=== PATIENT | female | born 1975 | race Caucasian/White ===

== ENCOUNTER 2018-05-10 02:14 | Emergency (ER) | payer SELFPAY ==
--- NOTE | 2018-05-10 02:23 | EDM.PDOC ---
ED HPI GENERAL MEDICAL PROBLEM - General Chief Complaint: General Stated Complaint: MEDICAL CLEARANCE Time Seen by Provider: 05/10/18 02:20 - History of Present Illness INITIAL COMMENTS - FREE TEXT/NARRATIVE: HISTORY AND PHYSICAL: History of present illness: Patient's 42-year-old white female presents in custody of law enforcement for medical clearance patient has no complaints Review of systems: As per history of present illness and below otherwise all systems reviewed and negative. Past medical history: As per history of present illness and as reviewed below otherwise noncontributory. Surgical history: As per history of present illness and as reviewed below otherwise noncontributory. Social history: No reported history of drug or alcohol abuse. Family history: As per history of present illness and as reviewed below otherwise noncontributory. Physical exam: HEENT: Atraumatic, normocephalic, pupils reactive, negative for conjunctival pallor or scleral icterus, mucous membranes moist, throat clear, neck supple, nontender, trachea midline. Lungs: Clear to auscultation, breath sounds equal bilaterally, chest nontender. Heart: S1S2, regular, negative for clicks, rubs, or JVD. Abdomen: Soft, nondistended, nontender. Negative for masses or hepatosplenomegaly. Negative for costovertebral tenderness. Pelvis: Stable nontender. Genitourinary: Deferred. Rectal: Deferred. Extremities: Atraumatic, negative for cords or calf pain. Neurovascular unremarkable. Neuro: Awake, alert, oriented. Cranial nerves II through XII unremarkable. Cerebellum unremarkable. Motor and sensory unremarkable throughout. Exam nonfocal. Diagnostics: None Therapeutics: None Impression: Medically clear for incarceration Definitive disposition and diagnosis as appropriate pending reevaluation and review of above. - Related Data Allergies Allergy/AdvReac Type Severity Reaction Status Date / Time No Known Allergies Allergy Verified 05/10/18 02:15 Home Meds: Home Meds . [No Known Home Meds] 05/10/18 [History] ED ROS GENERAL - Review of Systems Review Of Systems: ROS reveals no pertinent complaints other than HPI. ED EXAM, GENERAL - Physical Exam Exam: See Below (See dictation) Departure - Departure Time of Disposition: 02:23 Disposition: Home, Self-Care 01 Condition: Good Clinical Impression: Medical clearance for incarceration - Discharge Information Referrals: PCP,None [Primary Care Provider] - Additional Instructions: The following information is given to patients seen in the emergency department who are being discharged to home. This information is to outline your options for follow-up care. We provide all patients seen in our emergency department with a follow-up referral. The need for follow-up, as well as the timing and circumstances, are variable depending upon the specifics of your emergency department visit. If you don't have a primary care physician on staff, we will provide you with a referral. We always advise you to contact your personal physician following an emergency department visit to inform them of the circumstance of the visit and for follow-up with them and/or the need for any referrals to a consulting specialist. The emergency department will also refer you to a specialist when appropriate. This referral assures that you have the opportunity for followup care with a specialist. All of these measure are taken in an effort to provide you with optimal care, which includes your followup. Under all circumstances we always encourage you to contact your private physician who remains a resource for coordinating your care. When calling for followup care, please make the office aware that this follow-up is from your recent emergency room visit. If for any reason you are refused follow-up, please contact the [facility] emergency department at and asked to speak to the emergency department charge nurse. [facility] [address] [place] [id number] Follow-up primary medical doctor and/or clinic above for reevaluation of blood pressure return as needed as discussed
== END 2018-05-10 02:40 ==
LOC: MW.ED 02:14
DX: Z02.89 Encounter for other administrative examinations (principal)
CPT/HCPCS: 99282; 99283

== ENCOUNTER 2018-06-30 02:56 | Emergency (ER) | payer SELFPAY ==
[2018-06-30] MEDS ORDERED: Sodium Chloride 0.9% 10 ML Syringe FLUSH PRN (03:22)
[2018-06-30] MEDS ORDERED: Sodium Chloride 0.9% 2.5 ML Syringe FLUSH PRN (03:22)
--- NOTE | 2018-06-30 03:22 | EDM.PDOC ---
ED HPI GENERAL MEDICAL PROBLEM - General Chief Complaint: General Stated Complaint: IN AND OUT OF CONSCIOUSNESS Time Seen by Provider: 06/30/18 03:19 - History of Present Illness INITIAL COMMENTS - FREE TEXT/NARRATIVE: HISTORY AND PHYSICAL: History of present illness: Past 42-year-old white female presents here after drinking tonight with friends with multiple complaints. She remains anxious and unclear of her chief complaint. Review of systems: As per history of present illness and below otherwise all systems reviewed and negative. Past medical history: As per history of present illness and as reviewed below otherwise noncontributory. Surgical history: As per history of present illness and as reviewed below otherwise noncontributory. Social history: No reported history of drug or alcohol abuse. Family history: As per history of present illness and as reviewed below otherwise noncontributory. Physical exam: HEENT: Atraumatic, normocephalic, pupils reactive, negative for conjunctival pallor or scleral icterus, mucous membranes moist, throat clear, neck supple, nontender, trachea midline. Lungs: Clear to auscultation, breath sounds equal bilaterally, chest nontender. Heart: S1S2, regular, negative for clicks, rubs, or JVD. Abdomen: Soft, nondistended, nontender. Negative for masses or hepatosplenomegaly. Negative for costovertebral tenderness. Pelvis: Stable nontender. Genitourinary: Deferred. Rectal: Deferred. Extremities: Atraumatic, negative for cords or calf pain. Neurovascular unremarkable. Neuro: Awake, alert, moves all extremities limited grossly nonfocal exam Diagnostics: CBC CMP troponin EKG chest x-ray CT brain Therapeutics: IV O2 monitor Impression: #1 medical screening exam #2 alcohol abuse Definitive disposition and diagnosis as appropriate pending reevaluation and review of above. - Related Data Allergies Allergy/AdvReac Type Severity Reaction Status Date / Time No Known Allergies Allergy Verified 05/10/18 02:15 Home Meds: Home Meds . [No Known Home Meds] 05/10/18 [History] Past Medical History Cardiovascular History: Reports: Hypertension - Past Surgical History GI Surgical History: Reports: Appendectomy Social & Family History - Family History Family Medical History: Noncontributory ED ROS GENERAL - Review of Systems Review Of Systems: ROS reveals no pertinent complaints other than HPI. ED EXAM, GENERAL - Physical Exam Exam: See Below (See dictation) Course - Vital Signs Last Recorded V/S: Last Vital Signs Temp 36.6 C 06/30/18 02:56 Pulse 80 06/30/18 02:56 Resp 18 06/30/18 02:56 BP 168/103 H 06/30/18 02:56 Pulse Ox 99 06/30/18 02:56 Departure - Departure Time of Disposition: 03:22 Disposition: Home, Self-Care 01 Condition: Good Clinical Impression: Encounter for medical screening examination, Alcohol abuse - Discharge Information Referrals: PCP,None [Primary Care Provider] -
--- NOTE | 2018-06-30 03:43 | CR ---
INDICATION: Left facial numbness, confusion TECHNIQUE: Chest radiograph 1 view COMPARISON: None FINDINGS: Mediastinum: The mediastinum is normal in appearance. The heart silhouette is normal in size and morphology. Lung: Mild bibasilar subsegmental atelectasis is noted. No sign of pleural effusion seen. No pneumothorax is identified. Musculoskeletal: Unremarkable for age. IMPRESSION: 1. Mild bibasilar subsegmental atelectasis is noted. Dictated by: Octavio Esparza MD @ 06/30/2018 03:42:30 (Electronically Signed)
--- NOTE | 2018-06-30 03:47 | CT ---
INDICATION: Left facial numbness, confusion TECHNIQUE: CT Head without i.v. contrast. COMPARISON: None FINDINGS: CSF space: The ventricles are normal for age. Brain: No evidence of mass, acute infarction or hemorrhage is seen. No mass-effect or midline shift is seen. The brain parenchyma is otherwise normal in appearance with preservation of the johnson-white matter junction. Calvarium: The visualized paranasal sinuses are well aerated. The mastoid air cells are clear. The visualized orbits are grossly unremarkable. The calvarium is unremarkable in appearance with no fractures identified. IMPRESSION: 1. No evidence of acute infarction, intracranial hemorrhage, or mass-effect seen. The findings were discussed with Dr. Soni at 3:45 AM. Please note that all CT scans at this facility use dose modulation, iterative reconstruction, and/or weight-based dosing when appropriate to reduce radiation dose to as low as reasonably achievable. Dictated by: Octavio Esparza MD @ 06/30/2018 03:45:45 (Electronically Signed)
[2018-06-30 04:09] LABS: CHLORIDE,CL 105 mmol/L (98-107); SODIUM,NA 144 mmol/L (136-145)
[2018-06-30] MEDS ORDERED: Penicillin G Benzathine 1,200,000 Units/2 ML Syringe IM ONE (04:27)
== END 2018-06-30 04:40 | disposition home or self-care (01) ==
LOC: MW.ED 02:56
DX: F10.10 Alcohol abuse, uncomplicated (principal)
CPT/HCPCS: 36415; 70450; 70450-26; 71045; 71045-26; 80053; 82962; 84484; 85025; 85610; 93005; 99283; 99285-25

== ENCOUNTER 2020-06-05 02:31 | Emergency (ER) | payer MEDICAID ==
[2020-06-05] MEDS ORDERED: Ketorolac 60 MG/2 ML SDV IM ONE (03:01)
[2020-06-05] MEDS ORDERED: Orphenadrine 60 MG/2 ML Inj IM ONE (03:01)
--- NOTE | 2020-06-05 04:06 | CT ---
INDICATION: Acute back pain TECHNIQUE: CT lumbar spine without i.v. contrast. Coronal and sagittal reformats were obtained. COMPARISON: None FINDINGS: Alignment: Mild levoscoliosis of the lumbar spine is noted with apex L4 and a Richardson angle of 13 degrees. Bone: No acute fractures or aggressive bone lesions are identified. Disc: Mild disc narrowing with small broad-based disc protrusion is present at L4-5 and L5-S1, causing central canal stenosis. The facet joints are unremarkable. Soft tissue: The perivertebral soft tissues and visualized retroperitoneum are unremarkable in appearance. IMPRESSIONS: 1. No acute osseous injuries are identified. 2. Mild disc narrowing with small broad-based disc protrusion is present at L4-5 and L5-S1, causing central canal stenosis. This can be better assessed by MRI if clinically indicated. Dictated by Octavio Esparza MD @ 06/05/2020 4:04:28 AM Please note that all CT scans at this facility use dose modulation, iterative reconstruction, and/or weight-based dosing when appropriate to reduce radiation dose to as low as reasonably achievable. Dictated by: Octavio Esparza MD @ 06/05/2020 04:04:33 (Electronically Signed)
--- NOTE | 2020-06-05 04:06 | EDM.PDOC ---
ED HPI GENERAL MEDICAL PROBLEM - General Chief Complaint: Back Pain or Injury Stated Complaint: BACK PAIN Time Seen by Provider: 06/05/20 02:32 - History of Present Illness INITIAL COMMENTS - FREE TEXT/NARRATIVE: HISTORY AND PHYSICAL: History of present illness: This is a 44-year-old female with a history significant hypertension who presents ER today complaining of lower back pain that started 2 to 3 days ago. 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 Patient denies any fevers, shakes, chills, nausea, vomiting, diarrhea, dysuria, frequency, urgency. Patient denies any weakness to her upper or lower extremities. Patient reports difficulty walking is limited secondary to her pain. Patient reports pain increases with rotation of her torso and any palpation of her lower back. Patient denies any loss of bowel or bladder function. Patient has any paresthesias in her perineal region. Patient denies any IVDA. Patient reports that she does use methamphetamine and did drink tequila today. Patient denies any recent weight loss or weight gain. Patient denies any hematuria, polyuria. Review of systems: As per history of present illness and below otherwise all systems reviewed and negative. Past medical history: As per history of present illness and as reviewed below otherwise nonc ontributory. Surgical history: As per history of present illness and as reviewed below otherwise noncontributory. Social history: No reported history of drug or alcohol abuse. Family history: As per history of present illness and as reviewed below otherwise noncontributory. Physical exam: This patient was seen and evaluated during the 2019 SARS-CoV-2 novel coronavirus pandemic period. Community viral transmission is ongoing at time of this encounter and the emergency department is operating under pandemic response procedures. Constitutional: Patient is oriented to person, place, and time. Appears well- developed and well-nourished. No distress. HEENT: Moist mucous membranes Head: Normocephalic and atraumatic Eyes: Right eye exhibits no discharge. Left eye exhibits no discharge. No scleral icterus Neck: Normal range of motion. No tracheal deviation present. Cardiovascular: Normal rate and regular rhythm. Pulmonary: Effort normal, no respiratory distress. Abdominal: No distention Musculoskeletal: Normal range of motion Neurologic: Alert and oriented to person, place and time. Skin: Gaines, warm and dry. Psychiatric: Normal mood and affect. Behavior is normal. Judgment and thought content normal. Nursing note and vital signs have been reviewed Neuro: A&Ox3. Cranial nerves II-XII grossly intact, 5/5 strength to bilateral upper and lower extremities, sensation intact to bilateral upper and lower extremities, no nystagmus, PERRLA, EOMI, normal speech, proprioception intact to bilateral lower extremities, normal finger to nose test, gait normal. L1-L2: Cremasteric reflex intact L2: Cross leg test normal L3: The extension 5 out of 5 L4: Dorsiflexion 5 out of 5 L5: Able to point great toe up L2/3/4: Patellar reflex 2+ S1: Knee flexion 5 out of 5 S2: Plantar flexed toes Diagnostics: Lumbar spine CT Therapeutics: Norflex/Toradol Assessment and plan: This is a 44-year-old female who presents ER today complaining of worsening back pain. Patient reports that the pain started 2 to 3 days ago however this evening when she lifted up a heavy bucket/mop she started experiencing severe pain. Patient's friend has been rubbing it with salve without any significant relief. In the ED, the patient was given Norflex and Toradol IM with significant relief in her pain discomfort. Upon initial arrival the patient was writhing in pain and was unable to get comfortable. Patient had severe pain with any kind of movement. Upon reevaluation after the medication, the patient is resting comfortably in bed and reports that she feels much better. CT scan of the lumbar spine has been ordered and is pending at this time. Definitive disposition and diagnosis as appropriate pending reevaluation and review of above. Lower Pain Score (Numeric/FACES): 10 - Related Data Allergies Allergy/AdvReac Type Severity Reaction Status Date / Time No Known Allergies Allergy Verified 06/05/20 02:39 Home Meds: Home Meds Cyclobenzaprine [Flexeril] 10 mg PO TID PRN #20 tab 06/05/20 [Rx] traMADol [Ultram] 50 mg PO Q6H PRN #12 tab 06/05/20 [Rx] Past Medical History Cardiovascular History: Reports: Hypertension - Infectious Disease History Infectious Disease History: Reports: Chicken Pox, Shingles - Past Surgical History GI Surgical History: Reports: Appendectomy Social & Family History - Family History Family Medical History: No Pertinent Family History - Caffeine Use Caffeine Use: Reports: None - Recreational Drug Use Recreational Drug Type: Reports: Methamphetamine ED ROS GENERAL - Review of Systems Review Of Systems: See Below ED EXAM, GENERAL - Physical Exam Exam: See Below Course - Vital Signs Last Recorded V/S: Last Vital Signs Temp 97.0 F 06/05/20 02:40 Pulse 84 06/05/20 02:40 Resp 18 06/05/20 02:40 BP 172/100 H 06/05/20 02:40 Pulse Ox 98 06/05/20 02:40 - Orders/Labs/Meds Meds: Medications Discontinued Medications Generic Name Dose Route Start Last Admin Trade Name Freq PRN Reason Stop Dose Admin Ketorolac Tromethamine 60 mg 06/05/20 03:01 06/05/20 03:09 Ketorolac 60 Mg/2 Ml Sdv IM 06/05/20 03:02 60 mg ONETIME ONE Administration Orphenadrine Citrate 60 mg 06/05/20 03:01 06/05/20 03:10 Orphenadrine 60 Mg/2 Ml Inj IM 06/05/20 03:02 60 mg ONETIME ONE Administration Tramadol HCl 50 mg 06/05/20 04:09 Tramadol 50 Mg Tab PO 06/05/20 04:10 ONETIME ONE Departure - Departure Time of Disposition: 04:10 Disposition: Home, Self-Care 01 Condition: Good Clinical Impression: Sciatica - Discharge Information Instructions: Sciatica, [id number], Muscle Strain, [id number], Pain Medicine Instructions, [id number] Referrals: PCP,None [Primary Care Provider] - Forms: ED Department Discharge Additional Instructions: You were seen and evaluated in the ER today secondary to pain to your back which is most likely secondary to sciatica. The CT scan of your lumbar spine did not reveal any acute pathology. You were given Norflex and Toradol here in the ED. You will be sent home with a prescription for Flexeril and Ultram to help you with your pain until you are able to see your primary care physician so they can further assist you with further tests and pain management. The following information is given to patients seen in the emergency department who are being discharged to home. This information is to outline your options for follow-up care. We provide all patients seen in our emergency department with a follow-up referral. The need for follow-up, as well as the timing and circumstances, are variable depending upon the specifics of your emergency department visit. If you don't have a primary care physician on staff, we will provide you with a referral. We always advise you to contact your personal physician following an emergency department visit to inform them of the circumstance of the visit and for follow-up with them and/or the need for any referrals to a consulting specialist. The emergency department will also refer you to a specialist when appropriate. This referral assures that you have the opportunity for follow-up care with a specialist. All of these measure are taken in an effort to provide you with optimal care, which includes your follow-up. Under all circumstances we always encourage you to contact your private physician who remains a resource for coordinating your care. When calling for follow-up care, please make the office aware that this follow-up is from your recent emergency room visit. If for any reason you are refused follow-up, please contact the [facility] Emergency Department at and asked to speak to the emergency department charge nurse. [facility] [address] [place] [address] [place] [address] Sepsis Event Note (ED) - Evaluation Sepsis Screening Result: No Definite Risk - Focused Exam Vital Signs: Vital Signs Temp Pulse Resp BP Pulse Ox 06/05/20 02:40 97.0 F 84 18 172/100 H 98
[2020-06-05] MEDS ORDERED: traMADol 50 MG Tab PO ONE (04:09)
== END 2020-06-05 04:16 | disposition home or self-care (01) ==
LOC: MW.ED 02:31
DX: M54.40 Lumbago with sciatica, unspecified side (principal); I10 Essential (primary) hypertension; Z79.899 Other long term (current) drug therapy
CPT/HCPCS: 72131; 96372; 99283; A9270; J1885; J2360

== ENCOUNTER 2024-10-13 01:18 | Emergency (ER) | payer SELFPAY ==
[2024-10-13] MEDS ORDERED: Sodium Chloride 0.9% 10 ML Syringe FLUSH PRN (01:33)
[2024-10-13] MEDS ORDERED: Sodium Chloride 0.9% 2.5 ML Syringe FLUSH PRN (01:33)
[2024-10-13] MEDS: Clindamycin Phosphate in D5W 300 MG in Premix Bag 1 BAG IV ONE (01:44)
[2024-10-13] MEDS: Ketorolac 30 MG/ML SDV IVPUSH ONE (01:44)
[2024-10-13 01:54] LABS: BASOPHILS ABSOLUTE AUTO 0.04 K/uL (0.00-0.20); BASOPHILS PERCENT AUTO 0.4 % (0.0-1.0); EOSINOPHILS ABSOLUTE AUTO 0.13 K/uL (0.00-0.45); EOSINOPHILS PERCENT AUTO 1.4 % (0.0-6.0); IMMATURE GRAN ABSOLUTE AUTO 0.01 K/uL (0.00-0.05); IMMATURE GRAN PERCENT AUTO 0.1 % (0.0-0.4); LYMPHOCYTES ABSOLUTE AUTO 1.61 K/uL (1.00-4.80); LYMPHOCYTES PERCENT AUTO 17.5 % (24.0-44.0); MEAN PLATELET VOLUME 9.4 fL (9.4-12.3); MONOCYTES ABSOLUTE AUTO 0.80 K/uL (0.00-0.80); MONOCYTES PERCENT AUTO 8.7 % (0.0-8.0); NEUTROPHILS ABSOLUTE AUTO 6.60 K/uL (1.80-7.70); NEUTROPHILS PERCENT AUTO 71.9 % (41.0-71.0); NRBC ABSOLUTE 0.00 K/uL (0.00-0.02); NRBC PERCENT 0.0 /100WBC (0.0-0.2); PLATELET COUNT,PLT 313 K/uL (150-400); RED BLOOD CELL COUNT 5.07 M/uL (4.10-5.30); WHITE BLOOD CELL COUNT,WBC 9.19 K/uL (3.9-11.3)
[2024-10-13 02:12] LABS: BLOOD UREA NITROGEN,BUN 11 mg/dL (7.0-18.0); CARBON DIOXIDE,CO2 26.7 mmol/L (21.0-32.0); CHLORIDE,CL 101 mmol/L (98-107); CREATININE 0.8 mg/dL (0.6-1.0); GLUCOSE RANDOM 94 mg/dL (74-106); POTASSIUM,K 4.0 mmol/L (3.5-5.1); SODIUM,NA 138 mmol/L (136-145)
[2024-10-13 02:13] LABS: ESTIMATED GFR 89 mL/min (>60)
[2024-10-13] MEDS: Iopamidol 755 Mg/ML 100 ML Bottle IVPUSH ONE (02:54)
[2024-10-13] MEDS: Ondansetron 4 MG/2 ML SDV IVPUSH ONE (03:21)
== END 2024-10-13 04:14 | disposition home or self-care (01) ==
LOC: MW.ED 01:18
DX: K04.7 Periapical abscess without sinus (principal); I10 Essential (primary) hypertension; Z90.49 Acquired absence of other specified parts of digestive tract; Z79.899 Other long term (current) drug therapy
CPT/HCPCS: 36415; 70487; 80048; 85025; 96365; 96375; 99284; J0736; J1100; J1885; J2405; J7030; Q9967; 99283